=== PATIENT | female | born 1955 | race African-American/Black ===

== ENCOUNTER 2019-02-08 18:42 | Emergency (ER) | payer MEDICAID ==
[~2019-02-08] VITALS: Ht 157.5 cm; Wt 60.8 kg
[~2019-02-08 18:42] MED LIST: ACETAMINOPHEN-1 EAC1 ORAL; AMOX TR-K CLV1 EAC2 ORAL; CLARITIN10 M1 ORAL; PROZAC10 MG ORAL
[2019-02-08] MEDS ORDERED: LORazepam Inj 2mg/ml 1ml IV ONE (18:45)
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
[2019-02-08 18:50] VITALS: BP 175/105
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
--- NOTE | 2019-02-08 19:10 | NUR ---
ED Nurse Note: Received pt from [facility]. Pt is aagasper 3, vss, with no acute distress. Pt is cooperative with an unkept appearance. Pt is aggitated and excessively talkative. Pt stated substance abuse in the past, but her story keeps changing. Pt states 0/10 pain with no si issues noted. 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
--- NOTE | 2019-02-08 19:15 | NUR ---
ED Nurse Note: Blood and urine sent to lab.
--- NOTE | 2019-02-08 19:27 | NUR ---
ED Nurse Note: Pt is sleeping.
[2019-02-08 19:29] LABS: ANION GAP 12 mmol/L (5-15); BLOOD UREA NITROGEN 33 mg/dL (7-18); CALCIUM 9.2 MG/DL (8.5-10.1); CARBON DIOXIDE 24 MMOL/L (21-32); CHLORIDE 104 MMOL/L (98-107); CREATININE 2.2 MG/DL (0.55-1.30); POTASSIUM 3.6 MMOL/L (3.5-5.1); SODIUM 140 MMOL/L (136-145)
[2019-02-08 19:33] LABS: ALANINE AMINOTRANSFERASE 14 U/L (12-78); ALBUMIN 3.5 G/DL (3.4-5.0); ALBUMIN/GLOBULIN RATIO 0.9 (1.0-2.7); ALKALINE PHOSPHATASE 78 U/L (46-116); ASPARTATE AMINO TRANSFERASE 27 U/L (15-37); BILIRUBIN,TOTAL 0.3 MG/DL (0.2-1.0)
[2019-02-08 19:35] LABS: APPEARANCE,URINE CLEAR; BILIRUBIN, URINE NEGATIVE (NEGATIVE); COLOR,URINE PALE YELLOW; GLUCOSE, URINE (UA) NEGATIVE (NEGATIVE); KETONES,URINE NEGATIVE (NEGATIVE); LEUKOCYTE ESTERASE ,URINE NEGATIVE (NEGATIVE); NITRITE,URINE NEGATIVE (NEGATIVE); PH,URINE 5 (4.5-8.0); PROTEIN,URINE 3+ (NEGATIVE); UROBILINOGEN,URINE NORMAL MG/DL (0.0-1.0)
[2019-02-08 19:49] LABS: BASOPHILS % (AUTO) 0.8 % (0.0-2.0); EOSINOPHILS % (AUTO) 4.7 % (0.0-3.0); HEMATOCRIT 33.4 % (37.0-47.0); HEMOGLOBIN 12.3 G/DL (12.0-16.0); LYMPHOCYTES % (AUTO) 27.9 % (20.0-45.0); MEAN CORPUSCULAR VOLUME 85 FL (80-99); MONOCYTES % (AUTO) 9.7 % (1.0-10.0); NEUTROPHILS % (AUTO) 56.9 % (45.0-75.0); PLATELET COUNT 150 K/UL (150-450); RED BLOOD COUNT 3.91 M/UL (4.20-5.40); RED CELL DISTRIBUTION WIDTH 9.9 % (11.6-14.8)
[2019-02-08 20:00] VITALS: BP 168/99
[2019-02-08 21:40] VITALS: BP 158/92
--- NOTE | 2019-02-08 21:40 | NUR ---
ER DISCHARGE NOTE: Patient is cleared to be discharged per ERMD, pt is aox4, on room air, with stable vital signs. pt was given dc and prescription instructions, pt was able to verbalize understanding, pt id band and iv site removed without complications. pt is able to ambulate with steady gait. pt took all belongings. Pt stated she will take a taxi.
== END 2019-02-08 21:40 | disposition home or self-care (01) ==
LOC: EDBD 18:42 → EMR 19:05
DX: F14.10 Cocaine abuse, uncomplicated (principal); F15.10 Other stimulant abuse, uncomplicated; J45.909 Unspecified asthma, uncomplicated; N18.9 Chronic kidney disease, unspecified; Z88.1 Allergy status to other antibiotic agents
CPT/HCPCS: 36415; 80053; 80307; 81003; 85025; 93005; 96361; 96374; G0480; G0481; Z7502; 99284